=== PATIENT | female | born 1935 | race Caucasian/White ===

== ENCOUNTER 2018-09-18 09:12 | Emergency (ER) | payer MEDICARE ==
[2018-09-18 09:52] VITALS: BP 120/58
--- NOTE | 2018-09-18 11:06 | UC ---
Respiratory Complaint HPI - HPI Summary HPI Summary: The patient is an 82-year-old female that has felt ill for the past 2 days. Her symptoms started with a productive cough. She has had profound fatigue. She is normally quite active and does yard work. The past 24 hour she has not been able to get out of bed without assistance. She has a history of pneumonia 3 in the past 10 years. She is also recently diagnosed with possible Parkinson 's disease. She has had chronic right arm and leg weakness. It has been going on for greater than 2 years. She states that her arm and leg feel weak or the past 48 hours. She has had no chest pain. She has had nausea and anorexia but no vomiting. She denies any abdominal pain. SHe denies any UTI symptoms. She has had a headache. She states that headaches are rare for her. She has had chills but no documented fever. She states this feels similar to when she has had pneumonia in the past. She had an injury to her right hip about 7 months ago. X-rays of the right femur were normal. She states she has had some nasal congestion and postnasal drip as well as sore throat. - History of Current Complaint Chief Complaint: UCRespiratory Stated Complaint: SORE THROAT, COUGH, WEAKNESS, EAR CONCERN Time Seen by Provider: 09/18/18 09:51 Hx Obtained From: Patient Onset/Duration: Gradual Onset, Lasting Days Timing: Constant Severity Initially: Mild Severity Currently: Severe Pain Intensity: 5 Pain Scale Used: 0-10 Numeric Character: Cough: Productive Aggravating Factors: Nothing Alleviating Factors: Nothing Associated Signs And Symptoms: Positive: Chills, Dizziness, Nasal Congestion. Negative: Calf Pain, Calf Swelling, Edema, URI, Hoarseness, Sinus Discomfort - Allergies/Home Medications Allergies/Adverse Reactions: Allergies Allergy/AdvReac Type Severity Reaction Status Date / Time No Known Allergies Allergy Verified 02/17/18 12:03 Home Medications: Home Medications Carbidopa/Levodopa ER 25/100 [Carbidopa-Levo ER 25-100 Tab] 1 tab PO SEE INSTRUCTIONS 09/18/18 [History Confirmed 09/18/18] Cyanocobalamin TAB* [Vitamin B12 TAB*] 500 mcg PO DAILY 09/18/18 [History Confirmed 09/18/18] Dorzolamide 2% OPTH (NF) [Trusopt 2% OPTH (NF)] 0 dose SEE INSTRUCTIONS [History Confirmed 09/18/18] Hydrochlorothiazide TAB* [Hydrodiuril TAB*] 25 mg PO DAILY 09/18/18 [History Confirmed 09/18/18] Lutein 10 mg PO DAILY 09/18/18 [History Confirmed 09/18/18] Potassium 99 mg PO DAILY 09/18/18 [History Confirmed 09/18/18] PMH/Surg Hx/FS Hx/Imm Hx Previously Healthy: Yes Cardiovascular History: Hypertension Respiratory History: Pneumonia - X3 Neurological History: CVA - ???, Other Other Neurological History: ? Migraines - Surgical History Surgical History: Yes Surgery Procedure, Year, and Place: left knee repair - Family History Known Family History: Positive: Hypertension Negative: Diabetes - Social History Alcohol Use: None Substance Use Type: None Smoking Status (MU): Never Smoked Tobacco Review of Systems All Other Systems Reviewed And Are Negative: Yes Constitutional: Positive: Chills, Fatigue - ++++ Skin: Positive: Negative Eyes: Positive: Negative ENT: Positive: Sore Throat, Sinus Congestion Respiratory: Positive: Cough Cardiovascular: Positive: Negative Gastrointestinal: Positive: Negative Genitourinary: Positive: Negative Motor: Positive: Weakness - Right arm and leg Neurovascular: Positive: Negative Musculoskeletal: Positive: Negative Neurological: Positive: Headache Psychological: Positive: Negative Physical Exam Triage Information Reviewed: Yes Appearance: No Pain Distress, Well-Nourished, Ill-Appearing Vital Signs: Initial Vital Signs Temp 99 F 09/18/18 09:27 Pulse 73 09/18/18 09:27 Resp 22 09/18/18 09:27 BP 120/58 09/18/18 09:27 Pulse Ox 95 09/18/18 09:27 Vital Signs Reviewed: Yes Eyes: Positive: Conjunctiva Clear ENT: Positive: TMs normal - L normal, right unable to vis due to cerumen, Uvula midline. Negative: Hearing grossly normal - decreased hearing, Tonsillar swelling, Tonsillar exudate, Trismus, Muffled voice, Hoarse voice, Dental tenderness, Sinus tenderness Neck: Positive: Supple, Nontender, No Lymphadenopathy Respiratory: Positive: No respiratory distress, No accessory muscle use, Crackles - fione crackles both bases Cardiovascular: Positive: RRR. Negative: Tachycardia, Bradycardia Abdomen Description: Positive: Nontender, No Organomegaly. 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 CXR- cardiomegaly, no infiltrate - EKG Cardiac Rate: NL Cardiac Rhythm: Sinus: Normal - 1st degree AVB Ectopy: PACs ST Segment: Normal EKG Comparison: Other - no old EKG Respiratory Course/Dx - Course Course Of Treatment: D/W Dr. Farah to [facility] for further evaluation - Differential Dx/Diagnosis Provider Diagnosis: Weakness, Cough, Headache, Cardiomegaly Discharge - Sign-Out/Discharge Documenting (check all that apply): Patient Departure All imaging exams completed and their final reports reviewed: Yes - Discharge Plan Condition: Stable Disposition: TRANS HIGHER LVL OF CARE FAC Referrals: Jaylin King NP [Primary Care Provider] - Additional Instructions: I spoke to Dr. Farah in the ER They are expecting you Take copies of XRs - Billing Disposition and Condition Condition: STABLE Disposition: Trans Higher Lvl of Care Fac
== END 2018-09-18 11:16 | disposition short-term general hospital (02) ==
LOC: UCCORT 09:12
DX: R05 Cough (principal); R53.1 Weakness; R51 Headache; I51.7 Cardiomegaly; K44.9 Diaphragmatic hernia without obstruction or gangrene; I10 Essential (primary) hypertension; Z79.899 Other long term (current) drug therapy
CPT/HCPCS: 71046; 93005; 99212; G0463